=== PATIENT | male | born 1960 | race Caucasian/White ===

== ENCOUNTER 2017-10-19 11:59 | Inpatient (IN) | payer OTHER ==
[~2017-10-19] VITALS: Ht 175.3 cm; Wt 65.4 kg
--- NOTE | 2017-10-19 12:18 | NUR ---
315 -[facility]
[2017-10-19] MEDS ORDERED: HYDROCODONE/APAP 5/325MG 1 EACH TABLET PO ONE (12:30)
--- NOTE | 2017-10-19 12:46 | NUR ---
ACCEPTED BY ALEXUS SCHULTZ
--- NOTE | 2017-10-19 12:48 | NUR ---
NORCO NOT GIVEN, THE PATIENT WAS TRANSFERRED TO THE FLOOR- [facility] BY [facility]
[2017-10-19] MEDS ORDERED: MULT-213 PO (14:40)
[2017-10-19] MEDS ORDERED: HYDR-552 PO (14:40)
[2017-10-19] MEDS ORDERED: BUPR100T5 PO (14:40)
[2017-10-19] MEDS ORDERED: ACET-868 PO (14:40)
[2017-10-19] MEDS ORDERED: OMEP20TA68 PO (14:40)
[2017-10-19] MEDS ORDERED: MAGN400O6 PO (14:40)
[2017-10-19] MEDS ORDERED: CHOL200026 PO (14:40)
[2017-10-19] MEDS ORDERED: CLON0.5T PO (14:40)
[2017-10-19] MEDS ORDERED: THIA500T PO (14:40)
[2017-10-19] MEDS ORDERED: ZOLP5TAB2 PO (14:40)
[2017-10-19] MEDS ORDERED: DIPH25CA83 PO (14:40)
[2017-10-19] MEDS ORDERED: DOCU-25 PO (14:40)
[2017-10-19] MEDS ORDERED: Z GUARD REMEDY 2 OZ OINT TP PRN (16:30)
[2017-10-19] MEDS ORDERED: MAG HYDROX/AL HYDROX/SIMETH 30 ML UDC PO PRN (16:30)
[2017-10-19] MEDS ORDERED: MENTHOL/CETYLPYRD (CEPACOL) 1 LOZ LOZENGE PO PRN ×2 (16:30→17:30)
[2017-10-19] MEDS ORDERED: ACETAMINOPHEN 325 MG TABLET PO PRN ×2 (16:30)
[2017-10-19] MEDS ORDERED: ZOLPIDEM TARTRATE 5 MG TABLET PO PRN (16:30)
[2017-10-19] MEDS ORDERED: ONDANSETRON HCL/PF 4 MG/2 ML VIAL IVP PRN (16:30)
[2017-10-19] MEDS ORDERED: POLYVINYL ALCOHOL 15 ML BOTTLE EACHEYE PRN ×2 (16:30→17:30)
[2017-10-19] MEDS ORDERED: MAGNESIUM HYDROXIDE 30 ML UDC PO PRN ×2 (16:30)
[2017-10-19] MEDS ORDERED: diphenhydrAMINE HCL 25 MG CAPSULE PO PRN (16:30)
[2017-10-19] MEDS ORDERED: HYDROCODONE/APAP 5/325MG 1 EACH TABLET PO PRN (18:00)
[2017-10-19 18:30] VITALS: BP 140/89
--- NOTE | 2017-10-19 18:30 | NUR ---
MS RN INITIAL NOTE PT ARRIVED TO UNIT IN [facility] WITH EMT TRANSPORT. PER PT, HE WAS BROUGHT IN FROM [facility]. PT WAS BROUGHT IN FOR RESP DISTRESS AND COMPLAINING OF HEADACHE. PT IS A/A/O X4. LUNG SOUNDS CLEAR. BOWEL SOUNDS PRESENT. PULSES PRESENT. PT IS MAINLY WHEELCHAIR BOUND BUT IS ABLE TO ASSIST WITH TURNING. NO IV AT THIS TIME. BED IN LOW LOCKED POSITION. CALL LIGHT WITHIN REACH. WILL CONTINUE TO MONITOR.
[2017-10-19] MEDS: buPROPion SR 100 MG TABLET.ER PO SCH (18:41)
[2017-10-19] MEDS: DOCUSATE SODIUM 100 MG CAPSULE PO SCH (18:41)
[2017-10-19] MEDS: HYDROCODONE/APAP 5/325MG 1 EACH TABLET PO PRN ×2 (18:42→22:58)
[2017-10-19] MEDS: clonazePAM 0.5 MG TABLET PO SCH (18:42)
--- NOTE | 2017-10-19 19:50 | NUR ---
MS RN PT IN BED, PT IS ABLE TO SELF TRANSFER TO WHEELCHAIR. NO DISTRESS AT THIS TIME. PAIN MEDICATION EFFECTIVE. WILL CONTINUE TO MONITOR.
[2017-10-19 20:00] VITALS: BP 111/76
[2017-10-19] MEDS: ZOLPIDEM TARTRATE 5 MG TABLET PO PRN (22:56)
[2017-10-20] MEDS: IV NS 0.9% 1,000 ML IV PRN ×2 (00:34→16:33)
[2017-10-20 04:00] VITALS: BP_SYST 111; BP_SYST 119; BP_DIAS 69; BP_DIAS 76
[2017-10-20 06:54] LABS: BASOPHILS % (AUTO) 0.4 % (0.0-2.0); EOSINOPHILS # (AUTO) 0.4 /CMM (0.0-0.7); EOSINOPHILS % (AUTO) 5.3 % (0.0-6.0); HEMATOCRIT 44 % (39-51); HEMOGLOBIN 14.6 g/dL (13.5-17.5); LYMPHOCYTES # (AUTO) 2.7 /CMM (0.8-4.8); LYMPHOCYTES % (AUTO) 32.5 % (20.0-44.0); MEAN CORPUSCULAR HEMOGLOBIN 31 PG (26.0-33.0); MEAN CORPUSCULAR HGB CONC 34 g/dl (31.0-36.0); MEAN CORPUSCULAR VOLUME 91 fL (80-96); MONOCYTES # (AUTO) 0.6 /CMM (0.1-1.30); MONOCYTES % (AUTO) 7.1 % (2.0-12.0); NEUTROPHILS # (AUTO) 4.5 /CMM (1.8-8.9); NEUTROPHILS % (AUTO) 54.7 % (43.0-81.0); PLATELET COUNT (AUTO) 203 /CMM (150-450); RDW COEFFICIENT OF VARIATION 13.3 (11.5-15.0); RED BLOOD CELL COUNT(AUTO) 4.81 MIL/uL (4.5-6.0); WHITE BLOOD COUNT (AUTO) 8.3 K/uL (4.3-11.0)
[2017-10-20 07:25] LABS: ALBUMIN 3.4 g/dL (3.4-5.0); BILIRUBIN,DIRECT 0.1 mg/dL (0.0-0.2); BILIRUBIN,TOTAL 0.5 mg/dL (0.2-1.0); CALCIUM, SERUM 8.9 mg/dL (8.5-10.1); CREATININE 1.1 mg/dL (0.6-1.3); INR 1.01 (0.87-1.13); MAGNESIUM 2.1 mg/dL (1.8-2.4); PHOSPHORUS 3.6 mg/dL (2.5-4.9); POTASSIUM 3.7 mmol/L (3.5-5.1); PROTHROMBIN TIME 10.5 SECS (9.5-12.7); TOTAL PROTEIN, SERUM 6.4 g/dL (6.4-8.2)
--- NOTE | 2017-10-20 07:30 | NUR ---
CIRCLE EDGER INITIAL NOTES RECEIVED PATIENT SLEEPING IN BED,AO X3, NO SIGNS OF DISTRESS, ON ROOM AIR, EASY TO AROUSE, WHEELCHAIR BOUND, SKIN INTACT, IV L HAND 22G WITH NS@ 75 ML/HR, BED IN LOW AND LOCKED POSITION CALL LIGHT WITHIN REACH,WILL CONTINUE MONITOR.
[2017-10-20 07:39] LABS: THYROID STIMULATING HORMONE 1.27 uIU/mL (0.358-3.74)
[2017-10-20 08:00] VITALS: BP 125/69
[2017-10-20] MEDS: MULTIVITAMINS,THERAGRAN 1 UDTAB TABLET PO SCH (09:12)
[2017-10-20] MEDS: DOCUSATE SODIUM 100 MG CAPSULE PO SCH ×2 (09:12→16:34)
[2017-10-20] MEDS: NICOTINE PATCH (21MG) 21 MG PATCH.TD24 TD SCH (09:12)
[2017-10-20] MEDS: clonazePAM 0.5 MG TABLET PO SCH ×2 (09:13→16:34)
[2017-10-20] MEDS: buPROPion SR 100 MG TABLET.ER PO SCH ×2 (09:13→16:34)
[2017-10-20] MEDS: CHOLECALCIFEROL 1,000 UNIT TABLET (VIT D3) PO SCH (09:13)
[2017-10-20] MEDS: THIAMINE HCL 100 MG TABLET PO SCH (09:13)
[2017-10-20] MEDS: HYDROCODONE/APAP 5/325MG 1 EACH TABLET PO PRN ×4 (10:02→22:15)
[2017-10-20 12:00] VITALS: BP 115/71
--- NOTE | 2017-10-20 18:41 | NUR ---
RECREATION DIRECTOR END NOTES PATIENT RESTING IN BED, NO SIGNS OF DISTRESS, ALL NEEDS ATTENDED TO, PAIN MEDICATIONS GIVEN, WILL ENDORSE TO FLIGHT RADIO OPERATOR FOR CONTINUITY OF CARE.
--- NOTE | 2017-10-20 19:05 | NUR ---
RN OPENING NOTES RECEIVED REPORT FROM HARPREET KAN. PATIENT A/A/O X3, ABLE TO MAKE NEEDS KNOWN. BREATHING EVEN & UNLABORED, SATING WELL ON ROOM AIR. DENIES SOB OR DIFFICULTY BREATHING. PULSES PRESENT. SKIN WARM, DRY & INTACT. LEFT HAND IV #22 INTACT & PATENT W/ DRESSING CDI & IVF NS @ 75 ML/HR. DENIES ANY PAIN OR DISCOMFORT @ THIS TIME. SAFETY MEASURES IN PLACE W/ SIDE RAILS UP, BED LOCKED & IN LOWEST POSITION & CALL LIGHT WITHIN REACH. WILL CONTINUE TO MONITOR.
[2017-10-20 20:00] VITALS: BP 116/79
[2017-10-20] MEDS: ZOLPIDEM TARTRATE 5 MG TABLET PO PRN (22:15)
[2017-10-21 04:00] VITALS: BP 101/59
[2017-10-21 08:00] VITALS: BP 98/68
--- NOTE | 2017-10-21 08:00 | NUR ---
opening nurses notes: Received pt in bed sleeping no s/s of respiratory distress at this time.
[2017-10-21] MEDS: MULTIVITAMINS,THERAGRAN 1 UDTAB TABLET PO SCH (10:11)
[2017-10-21] MEDS: DOCUSATE SODIUM 100 MG CAPSULE PO SCH ×2 (10:11→17:38)
[2017-10-21] MEDS: THIAMINE HCL 100 MG TABLET PO SCH (10:11)
[2017-10-21] MEDS: NICOTINE PATCH (21MG) 21 MG PATCH.TD24 TD SCH (10:12)
[2017-10-21] MEDS: clonazePAM 0.5 MG TABLET PO SCH ×2 (10:12→17:38)
[2017-10-21] MEDS: CHOLECALCIFEROL 1,000 UNIT TABLET (VIT D3) PO SCH (10:13)
[2017-10-21] MEDS: HYDROCODONE/APAP 5/325MG 1 EACH TABLET PO PRN ×3 (10:21→22:04)
[2017-10-21] MEDS: buPROPion SR 100 MG TABLET.ER PO SCH ×2 (10:21→17:38)
--- NOTE | 2017-10-21 13:00 | NUR ---
nurses notes:, pt up in w/c on hallway, no respiratory distress, call light in reach.
[2017-10-21 15:29] VITALS: BP 117/74
[2017-10-21 15:38] VITALS: BP 117/74
--- NOTE | 2017-10-21 18:37 | NUR ---
End RN notes: pt in bed awake, alert, no c/o discomfort at this time, no sob nor respiratory distress.
[2017-10-21 20:00] VITALS: BP 123/81
[2017-10-21] MEDS: ZOLPIDEM TARTRATE 5 MG TABLET PO PRN (22:30)
[2017-10-22 04:00] VITALS: BP 107/67
[2017-10-22 08:00] VITALS: BP 115/74
--- NOTE | 2017-10-22 08:45 | NUR ---
RN notes: received pt in bed sleeping, no respiratory distress, no sob, hob elevated, no distress.
[2017-10-22] MEDS: CHOLECALCIFEROL 1,000 UNIT TABLET (VIT D3) PO SCH (09:19)
[2017-10-22] MEDS: NICOTINE PATCH (21MG) 21 MG PATCH.TD24 TD SCH (09:19)
[2017-10-22] MEDS: THIAMINE HCL 100 MG TABLET PO SCH (09:19)
[2017-10-22] MEDS: DOCUSATE SODIUM 100 MG CAPSULE PO SCH ×2 (09:20→17:05)
[2017-10-22] MEDS: clonazePAM 0.5 MG TABLET PO SCH ×2 (09:20→17:05)
[2017-10-22] MEDS: MULTIVITAMINS,THERAGRAN 1 UDTAB TABLET PO SCH (09:20)
[2017-10-22] MEDS: buPROPion SR 100 MG TABLET.ER PO SCH ×2 (09:20→17:05)
[2017-10-22] MEDS: HYDROCODONE/APAP 5/325MG 1 EACH TABLET PO PRN ×4 (09:27→23:02)
--- NOTE | 2017-10-22 12:41 | NUR ---
RN notes: pr requested for pain meds earlier and was medicated with norco 1 tab po, with good effect, pt is comfortable in bed no distress, call light in reach.
[2017-10-22 16:00] VITALS: BP_SYST 139; BP_DIAS 82; BP_DIAS 87
--- NOTE | 2017-10-22 17:48 | NUR ---
RN end notes: pt awake in bed no sob no respiratory distress o2 sat 99% RA, no distress.
[2017-10-22 20:00] VITALS: BP 116/81
[2017-10-22] MEDS: ZOLPIDEM TARTRATE 5 MG TABLET PO PRN (22:03)
[2017-10-23 04:00] VITALS: BP 116/70
--- NOTE | 2017-10-23 07:30 | NUR ---
MS RN AM NOTES RECEIVED PATIENT SLEEPING IN BED,AO X3, NO SIGNS OF DISTRESS, ON ROOM AIR, EASY TO AROUSE, WHEELCHAIR BOUND, DENIES ANY PAIN OR DISCOMFORT AT THIS TIME. SKIN INTACT, IV L HAND 22G FLUSHES WELL, SITE CLEAR. BED IN LOW AND LOCKED POSITION CALL LIGHT WITHIN REACH,WILL CONTINUE MONITOR.
[2017-10-23 08:00] VITALS: BP 113/61
[2017-10-23] MEDS: buPROPion SR 100 MG TABLET.ER PO SCH ×2 (08:46→16:56)
[2017-10-23] MEDS: NICOTINE PATCH (21MG) 21 MG PATCH.TD24 TD SCH (08:46)
[2017-10-23] MEDS: THIAMINE HCL 100 MG TABLET PO SCH (08:47)
[2017-10-23] MEDS: CHOLECALCIFEROL 1,000 UNIT TABLET (VIT D3) PO SCH (08:47)
[2017-10-23] MEDS: MULTIVITAMINS,THERAGRAN 1 UDTAB TABLET PO SCH (08:47)
[2017-10-23] MEDS: clonazePAM 0.5 MG TABLET PO SCH ×2 (08:48→16:56)
[2017-10-23] MEDS: DOCUSATE SODIUM 100 MG CAPSULE PO SCH ×2 (08:48→16:55)
[2017-10-23] MEDS: HYDROCODONE/APAP 5/325MG 1 EACH TABLET PO PRN ×3 (08:54→21:37)
--- NOTE | 2017-10-23 09:30 | NUR ---
MS RN NOTES ADMINISTERED DUE MEDS.
[2017-10-23] MEDS ORDERED: NICO1PAT10 TP (11:00)
[2017-10-23 16:00] VITALS: BP 102/59
--- NOTE | 2017-10-23 18:44 | NUR ---
MS RN CLOSING NOTES PATIENT IN BED, RESTING COMFORTABLY, AO X3, NO SIGNS OF DISTRESS, ON ROOM AIR, WHEELCHAIR BOUND, DENIES ANY PAIN OR DISCOMFORT AT THIS TIME. SKIN INTACT, IV L HAND 22G FLUSHES WELL, SITE CLEAR. BED IN LOW AND LOCKED POSITION CALL LIGHT WITHIN REACH,ALL NEEDS MET. NO OTHER SIGNIFICANT CHANGE IN CONDITION. WILL ENDORSE TO NEXT SHIFT FOR [facility]. FOR POSSIBLE DC IN AM.
[2017-10-23 20:00] VITALS: BP 115/72
[2017-10-23] MEDS: ZOLPIDEM TARTRATE 5 MG TABLET PO PRN (22:48)
[2017-10-24 04:00] VITALS: BP 99/60
--- NOTE | 2017-10-24 07:51 | NUR ---
MS RN NOTES RECEIVED PT ON BED, A/O X 4, NO SIGNS OF DISTRESS. RIGHT HAND HL INTACT, NO SIGN AND SYMPTOMS OF INFECTION NOTED A THIS TIME. NO COMPLAINS OF PAIN, RESPIRATION EVEN AND UNLABORED. BED LOCKED AND LOW POSITION. CALL WITHIN REACH, PLAN OF CARE DISCUSS WITH THE PATIENT. WILL CONTINUE TO MONITOR CLOSELY.
[2017-10-24 08:00] VITALS: BP 121/78
[2017-10-24] MEDS: NICOTINE PATCH (21MG) 21 MG PATCH.TD24 TD SCH (09:02)
[2017-10-24] MEDS: THIAMINE HCL 100 MG TABLET PO SCH (09:02)
[2017-10-24] MEDS: CHOLECALCIFEROL 1,000 UNIT TABLET (VIT D3) PO SCH (09:02)
[2017-10-24] MEDS: buPROPion SR 100 MG TABLET.ER PO SCH (09:03)
[2017-10-24] MEDS: MULTIVITAMINS,THERAGRAN 1 UDTAB TABLET PO SCH (09:03)
[2017-10-24] MEDS: DOCUSATE SODIUM 100 MG CAPSULE PO SCH (09:03)
[2017-10-24] MEDS: clonazePAM 0.5 MG TABLET PO SCH (09:03)
[2017-10-24] MEDS: HYDROCODONE/APAP 5/325MG 1 EACH TABLET PO PRN (09:17)
--- NOTE | 2017-10-24 10:25 | NUR ---
MS RN NOTES [facility] CALLED FOR REPORT, NO ONE ANSWERED, ACCOUNTS RECEIVABLE SUPERVISOR SAID OKAY TO SEND THE PT.
--- NOTE | 2017-10-24 14:11 | NUR ---
MS RN NOTE AMBULANCE ARRIVED , REPORT GIVEN ,HL ON LT HAND INTACT, NO S\S INFECTION, NO BLEEDING NO C\O PAIN UNABLE TO GIVE REPORT TO [facility] RN ,LEFT A MESSAGE , WENT TO SNF WITH STABLE CONDITION
== END 2017-10-24 14:14 | DRG 816 ==
LOC: ER 12:00 → MEDSG1 15:55 → EDBD 15:55
PROVIDERS: ADMIT Internal Medicine; ATTEND Internal Medicine
DX: T59.811A Toxic effect of smoke, accidental (unintentional), initial encounter (principal); J96.01 Acute respiratory failure with hypoxia; J70.5 Respiratory conditions due to smoke inhalation; Y92.129 Unspecified place in nursing home as the place of occurrence of the external cause; X08.8XXA Exposure to other specified smoke, fire and flames, initial encounter; Z79.899 Other long term (current) drug therapy; F32.9 Major depressive disorder, single episode, unspecified; M16.11 Unilateral primary osteoarthritis, right hip; K21.9 Gastro-esophageal reflux disease without esophagitis; F17.200 Nicotine dependence, unspecified, uncomplicated
CPT/HCPCS: 36415; 71010-TC; 80053-TC; 80061-TC; 80076-TC; 82746; 83540-TC; 83735-TC; 84100-TC; 84443-TC; 85025-TC; 85730-TC; 87081-TC; 93307-TC; A4606; J7030; Z7610